=== PATIENT | male | born 1985 | race Caucasian/White ===

== ENCOUNTER 2019-01-17 09:05 | Emergency (ER) | payer OTHER ==
[~2019-01-17] VITALS: Ht 180.3 cm; Wt 103.9 kg
[2019-01-17 09:08] VITALS: BP 146/90; Ht 180.3 cm; Wt 103.9 kg
== END 2019-01-17 11:20 | disposition home or self-care (01) ==
LOC: ED 09:05
DX: S60.131A Contusion of right middle finger with damage to nail, initial encounter (principal); W22.8XXA Striking against or struck by other objects, initial encounter; Y93.89 Activity, other specified; Y92.89 Other specified places as the place of occurrence of the external cause; Y99.8 Other external cause status